=== PATIENT | female | born 1995 | race Caucasian/White ===

== ENCOUNTER → 2021-09-15 17:38 | Outpatient (CLI) | payer OTHER, SELFPAY ==
--- NOTE | 2021-09-15 17:49 | DI.MRI.S_ITS ---
PROCEDURE: MR FOOT RT WO CON INDICATIONS: PAIN IN RIGHT FOOT TECHNIQUE: Noncontrast sagittal T1 spin echo and T2 fast spin echo with fat saturation, long-axis T1 spin echo and T2 fast spin echo with fat saturation, short-axis T1 spin echo and T2 fast spin echo with fat saturation through the forefoot. COMPARISON: [facility], CR, XR FOOT 3+ VIEWS RIGHT, 08/29/2021, 12:32. FINDINGS: Image quality: Excellent. Bones and joints: No bone marrow contusions or fractures. No evidence of metatarsal stress reaction or stress fractures. There is mild cartilage thinning of the 1st metatarsophalangeal joint with mild osteophytosis and subchondral edema consistent with mild degeneration. There is a minimal joint effusion at the 1st metatarsophalangeal joint. The sesamoid bones appear in expected positions, without internal edema. No intraosseous lesions. Soft tissues: The visualized plantar foot muscles demonstrate normal signal and bulk. Visualized flexor and extensor tendons appear intact, without tenosynovitis. The distal insertions of the peroneus brevis and longus tendons appear intact. The principal Lisfranc ligament appears intact. No soft tissue ganglion cysts or bursal fluid collections. Sagittal images demonstrate no evidence for plantar plate tears. IMPRESSION: 1. No fractures or bone contusions. 2. 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 Dictated by: Tacho Abdullahi M.D. on 09/18/2021 at 9:43 Approved by: Tacho Abdullahi M.D. on 09/18/2021 at 10:01
== END ==
PROVIDERS: Referring Provider Podiatrist; Visit Provider Podiatrist
DX: M25.879 Other specified joint disorders, unspecified ankle and foot (principal); M79.671 Pain in right foot; R26.2 Difficulty in walking, not elsewhere classified; M25.474 Effusion, right foot
CPT/HCPCS: 73718

== ENCOUNTER 2021-12-10 11:57 | Emergency (ER) | payer OTHER, SELFPAY ==
[2021-12-10 12:14] VITALS: BP 99/59; PULSE 104; RESP 18; TEMP 37.9; O2SAT 97; BMI 19.3
--- NOTE | 2021-12-10 12:30 | DI.RAD.S_ITS ---
PROCEDURE: XR CHEST 1V INDICATIONS: suspected sepsis TECHNIQUE: One view of the chest was acquired. COMPARISON: None. FINDINGS: Surgical changes and devices: None. Lungs and pleura: Lungs are clear. No pleural effusions or pneumothorax. Mediastinum: Mediastinal contours appear normal. Heart size is normal. Bones and chest wall: No suspicious bony lesions. Overlying soft tissues appear unremarkable. IMPRESSION: No acute process. Dictated by: Lyndon Zamora M.D. on 12/10/2021 at 13:45 Approved by: Lyndon Zamora M.D. on 12/10/2021 at 13:45
--- NOTE | 2021-12-10 12:41 | ED_ITS ---
HPI - General Adult General Chief complaint: Abdominal Pain Stated complaint: v/d for the last 6 hours Time Seen by Provider: 12/10/21 12:31 Source: patient Mode of arrival: Ambulatory History of Present Illness HPI narrative: Patient is a 26-year-old female who arrives to the emergency department for 6 hours of vomiting and diarrhea. States she woke up this morning feeling very nauseous. Since that time she has had multiple episodes of vomiting multiple episodes of diarrhea. Some abdominal cramping around these episodes. She stat es she did have 1 glass of wine last evening otherwise no other potential reason for the nausea and vomiting. No recent travel. No recent antibiotics. No known sick contacts. No chest pain. No shortness of breath. No urinary symptoms. No vaginal bleeding. No skin rashes. No joint pain. Related Data Allergies Allergy/AdvReac Type Severity Reaction Status Date / Time No Known Drug Allergies Allergy Verified 12/10/21 12:17 Review of Systems Review of Systems ROS Unobtainable: All systems reviewed & are unremarkable except as noted in HPI and below Patient History Medical History Healthy adult Social History Smoking Status: Never smoker Smoking Status: Never smoker Substance Use Type: does not use Exam Initial Vital Signs Initial Vital Signs: Vital Signs Temperature 100.3 F H 12/10/21 12:14 Pulse Rate 104 H 12/10/21 12:14 Respiratory Rate 18 12/10/21 12:14 Blood Pressure 99/59 L 12/10/21 12:14 Pulse Oximetry 97 12/10/21 12:14 Const General: cooperative, comfortable and well developed HENMT Head: normal to inspection and normocephalic Mouth: moist mucous membranes Resp Effort & Inspection: normal respiratory effort Auscultation: clear to auscultation bilaterally Cardio Rate: tachycardic Rhythm: regular rhythm GI Inspection: normal to inspection Palpation: soft, No firm, No guarding and No tender Skin General: no rashes or lesions noted Neuro General: patient alert, patient awake and moves all extremities Cognition: normal cognition Speech: speech normal Extrem General: normal to inspection and capillary refill normal Psych Appearance: grossly normal and well kempt Course Orders Ordered: ED Orders 12/10/21 12:30 XR chest 1V Stat RT Consult Eval and Treat NOW 12/10/21 12:32 Urine Microscopic Stat 12/10/21 12:36 Complete Blood Count AUTO DIFF Stat Comprehensive Metabolic Panel Stat Lactate (Lactic Acid) Stat Lipase Stat Procalcitonin Stat 12/10/21 12:51 Blood Culture Stat 12/10/21 13:10 EKG-12 Lead Stat Discontinued Medications Sodium Chloride (Normal Saline 0.9%) 1,000 mls @ 1,000 mls/hr IV BOLUS ONE Stop: 12/10/21 13:29 Last Infusion: 12/10/21 13:57 Dose: 0 mls/hr Documented by: Admin: 12/10/21 12:51 Dose: 1,000 mls/hr Documented by: GERRI Sodium Chloride (Normal Saline 0.9%) 1,000 mls @ 1,000 mls/hr IV BOLUS ONE Stop: 12/10/21 13:35 Last Admin: 12/10/21 13:16 Dose: Not Given Documented by: MIREYA Ondansetron HCl (Ondansetron 4 Mg/2 Ml Inj) 4 mg IV NOW ONE Stop: 12/10/21 12:43 Last Admin: 12/10/21 12:51 Dose: 4 mg Documented by: GERRI Ondansetron HCl (Ondansetron 4 Mg Odt Prepack) 1 bottle MISC SEEINSTR ONE Stop: 12/10/21 15:43 Last Admin: 12/10/21 16:03 Dose: 1 bottle Documented by: MIREYA Vital Signs Vital signs: Vital Signs - 8 hr 12/10/21 12:14 12/10/21 14:01 12/10/21 15:22 Temperature 100.3 F H 99.1 F 100.5 F H Pulse Rate 104 H 97 H 100 H Respiratory Rate 18 18 18 Blood Pressure 99/59 L 95/51 L 98/55 L Pulse Oximetry 97 99 100 12/10/21 16:23 Temperature Pulse Rate 100 H Respiratory Rate 16 Blood Pressure 98/56 L Pulse Oximetry 99 Medical Decision Making Lab Data Lab results reviewed: Yes I reviewed the patient's lab results. Result diagrams: 12/10/21 12:36 12/10/21 12:36 Labs: Lab Results 12/10/21 12/10/21 12/10/21 Range/Units 12:32 12:36 12:36 WBC 10.7 (4.5-11.0) X10^3/uL RBC 4.33 (4.0-5.2) X10^6/uL Hgb 13.3 (12.0-16.0) g/dL Hct 39.0 (36-46) % MCV 89.9 (80-100) fL MCH 30.7 (26-34) PG MCHC 34.1 (30-36) % RDW 12.9 (11.6-14.8) % Plt Count 225 (150-400) X10^3/uL Neut % (Auto) 95.1 H (50-75) % Lymph % (Auto) 1.4 L (25-40) % [place] % (Auto) 3.1 (3-14) % Eos % (Auto) 0.3 L (2-4) % Baso % (Auto) 0.1 (0-2) % Neut # (Auto) 05019 H (5667-4943) /uL Lymph # (Auto) 100 L (8566-0701) /uL [place] # (Auto) 300 (0-900) /uL Eos # (Auto) 0 (0-450) /uL Baso # (Auto) 0 (0-100) /uL Sodium 139 (137-145) mmol/L Potassium 3.6 (3.4-5.1) mmol/L Chloride 103 (98-107) mmol/L Carbon Dioxide 24 (22-32) mmol/L BUN 19 H (7-17) mg/dL Creatinine 0.80 (0.52-1.04) mg/dL Estimated GFR > 60 (>60) mL/min BUN/Creatinine Ratio 23.8 H (6-22) Glucose 127 H (70-100) mg/dL Lactate (0.7-2.1) mmol/L Calcium 9.0 (8.4-10.2) mg/dL Total Bilirubin 0.9 (0.2-1.3) mg/dL AST 33 (14-36) IU/L ALT 22 (<35) IU/L Alkaline Phosphatase 61 (38-126) U/L Total Protein 7.3 (6.3-8.2) g/dL Albumin 4.3 (3.5-5.0) g/dL Globulin 3.0 (1.7-4.1) g/dL Albumin/Globulin Ratio 1.4 (1.0-2.8) Lipase 42 (23-300) U/L Procalcitonin 0.18 (<0.5) ng/mL Urine RBC None seen (0-5/HPF) Urine WBC 1-5/hpf (0-5/HPF) Ur Squamous Epith Cells 5-10 /hpf H (0-5/HPF) Amorphous Sediment 1+ Urine Bacteria None seen (None) Ur Culture Indicated? Cult not indicated 12/10/21 12/10/21 Range/Units 12:36 15:05 WBC (4.5-11.0) X10^3/uL RBC (4.0-5.2) X10^6/uL Hgb (12.0-16.0) g/dL Hct (36-46) % MCV (80-100) fL MCH (26-34) PG MCHC (30-36) % RDW (11.6-14.8) % Plt Count (150-400) X10^3/uL Neut % (Auto) (50-75) % Lymph % (Auto) (25-40) % [place] % (Auto) (3-14) % Eos % (Auto) (2-4) % Baso % (Auto) (0-2) % Neut # (Auto) (4406-8292) /uL Lymph # (Auto) (1745-5394) /uL [place] # (Auto) (0-900) /uL Eos # (Auto) (0-450) /uL Baso # (Auto) (0-100) /uL Sodium (137-145) mmol/L Potassium (3.4-5.1) mmol/L Chloride (98-107) mmol/L Carbon Dioxide (22-32) mmol/L BUN (7-17) mg/dL Creatinine (0.52-1.04) mg/dL Estimated GFR (>60) mL/min BUN/Creatinine Ratio (6-22) Glucose (70-100) mg/dL Lactate 2.6 H 0.8 (0.7-2.1) mmol/L Calcium (8.4-10.2) mg/dL Total Bilirubin (0.2-1.3) mg/dL AST (14-36) IU/L ALT (<35) IU/L Alkaline Phosphatase (38-126) U/L Total Protein (6.3-8.2) g/dL Albumin (3.5-5.0) g/dL Globulin (1.7-4.1) g/dL Albumin/Globulin Ratio (1.0-2.8) Lipase (23-300) U/L Procalcitonin (<0.5) ng/mL Urine RBC (0-5/HPF) Urine WBC (0-5/HPF) Ur Squamous Epith Cells (0-5/HPF) Amorphous Sediment Urine Bacteria (None) Ur Culture Indicated? Point of Care Testing Test Results Negative Urine Dip Bedside Urine Glucose Negative Bedside Urine Bilirubin + 1 Bedside Urine Ketone - Negative Urine Specific Willard 1.005 Bedside Urine Occult Blood - Negative Bedside Urine pH 8.5 Bedside Urine Protein + 30 Bedside Urine Urobilinogen - Negative Bedside Urine Nitrite - Negative Bedside Urine Leukocytes - Negative Esterase Point of care testing: Point of Care Testing Test Results Negative Urine Dip Bedside Urine Glucose Negative Bedside Urine Bilirubin + 1 Bedside Urine Ketone - Negative Urine Specific Willard 1.005 Bedside Urine Occult Blood - Negative Bedside Urine pH 8.5 Bedside Urine Protein + 30 Bedside Urine Urobilinogen - Negative Bedside Urine Nitrite - Negative Bedside Urine Leukocytes - Negative Esterase Imaging Data Chest x-ray: Radiologist's Impression: [place] [address] XRay Report Signed Patient: Leah Crocker MR#: [id number] : 1995 Acct:[id number] Age/Sex: 26 / F Date of Service: 12/10/21 Loc: ED Accession Number: [id number] ?? Procedure: XR chest 1V Ordering Provider: Jacinto Posadas D.O. PROCEDURE:? XR CHEST 1V ? INDICATIONS:? suspected sepsis ? TECHNIQUE:? One view of the chest was acquired.? ? COMPARISON:? None. ? FINDINGS:? ? Surgical changes and devices:? None.? ? Lungs and pleura:? Lungs are clear.? No pleural effusions or pneumothorax.? ? Mediastinum:? Mediastinal contours appear normal.? Heart size is normal.? ? Bones and chest wall:? No suspicious bony lesions.? Overlying soft tissues appear unremarkable.? ? IMPRESSION:? No acute process. ? ? Dictated by: Lyndon Zamora M.D. on 12/10/2021 at 13:45 ? ? Approved by: Lyndon Zamora M.D. on 12/10/2021 at 13:45? ECG Data Attestation: I personally reviewed and interpreted this ECG as follows: Interpretation: Sinus rhythm Ventricular rate 95 Normal axis Normal QRS Normal QTC No ST T wave changes MDM Narrative Medical decision making narrative: Patient was febrile upon arrival. Tachycardic but this improved with fluids. Does not have a white count. Does have an elevated lactate but this improved with fluid is well. I suspect that this was stress from all of the vomiting. She feels better after treatment here in the ER. Was able to tolerate oral intake without vomiting. She has a benign abdominal exam. No indication for radiologic studies. We will send home with anti nausea medication. No indication for antibiotics currently based on her history and physical. He was given strict return precautions and follow-up instructions. She expressed understanding and agreement. Discharge Plan Departure Patient Disposition: Home Clinical Impression: Nausea and vomiting Instructions: Nausea and Vomiting-Adult Activity Restrictions/Additional Instructions: Be sure to increase your fluid intake by drinking small amounts of fluid over longer periods of time. Use the nausea medication as needed. Contact your primary doctor for follow-up. Return to the emergency department for any new or worsening symptoms.
[2021-12-10 12:44] LABS: RBC Urine None Seen (0-5/HPF); WBC Urine 1-5/HPF (0-5/HPF)
[2021-12-10 12:45] LABS: Amorphous Sediment Urine 1+; Bacteria Urine None Seen; Culture Indicated Urine Cult Not Indicated; Squamous Epithelial Cell Urine 5-10 /HPF (0-5/HPF)
[2021-12-10 12:48] LABS: Add Manual Diff / Slide Review NO; Basophils Absolute Auto 0 /uL (0-100); Basophils Percent Auto 0.1 % (0-2); Eosinophils Absolute Auto 0 /uL (0-450); Eosinophils Percent Auto 0.3 % (2-4); Hemoglobin 13.3 g/dL (12.0-16.0); Lymphocytes Absolute Auto 100 /uL (1100-4500); Lymphocytes Percent Auto 1.4 % (25-40); Mean Corpuscular HGB Conc 34.1 % (30-36); Mean Corpuscular Hemoglobin 30.7 PG (26-34); Mean Corpuscular Volume 89.9 fL (80-100); Monocytes Absolute Auto 300 /uL (0-900); Monocytes Percent Auto 3.1 % (3-14); Neutrophils Absolute Auto 10200 /uL (1500-7000); Neutrophils Percent Auto 95.1 % (50-75); Platelet Count 225 X10^3/uL (150-400); Red Blood Cell Count 4.33 X10^6/uL (4.0-5.2); Red Cell Distribution Width 12.9 % (11.6-14.8); White Blood Cell Count 10.7 X10^3/uL (4.5-11.0)
[2021-12-10] MEDS: SODIUM CHLORIDE 0.9% 1,000 ML 1000 ML IV (12:51)
[2021-12-10] MEDS: ONDANSETRON 4 MG/2 ML INJ IV (12:51)
[2021-12-10 12:58] LABS: Lactate (Lactic Acid) 2.6 mmol/L (0.7-2.1)
[2021-12-10 12:59] LABS: Alanine Aminotransferase 22 IU/L (<35); Albumin 4.3 g/dL (3.5-5.0); Albumin Globulin Ratio 1.4 (1.0-2.8); Alkaline Phosphatase 61 U/L (38-126); Aspartate Aminotransferase 33 IU/L (14-36); BUN Creatinine Ratio 23.8 (6-22); Bilirubin Total 0.9 mg/dL (0.2-1.3); Blood Urea Nitrogen 19 mg/dL (7-17); Carbon Dioxide 24 mmol/L (22-32); Chloride 103 mmol/L (98-107); Estimated Glomerular Filt Rate > 60 mL/min (>60); Glucose 127 mg/dL (70-100); HEMOLYSIS < 15 (0-50); Lipase 42 U/L (23-300); Potassium 3.6 mmol/L (3.4-5.1); Sodium 139 mmol/L (137-145); Total Protein 7.3 g/dL (6.3-8.2)
[2021-12-10 13:16] LABS: Procalcitonin 0.18 ng/mL (<0.5)
[2021-12-10 14:01] VITALS: BP 95/51; PULSE 97; RESP 18; TEMP 37.3; O2SAT 99
[2021-12-10 14:41] LABS: Reflexed Lactate in 2 Hours Y
[2021-12-10 15:22] VITALS: BP 98/55; PULSE 100; RESP 18; TEMP 38.1; O2SAT 100
[2021-12-10 15:23] LABS: Lactate 2HR (Lactic Acid Rflx) 0.8 mmol/L (0.7-2.1)
[2021-12-10] MEDS: ONDANSETRON 4 MG ODT PREPACK 1 BOTTLE MISC (16:03)
[2021-12-10 16:23] VITALS: BP 98/56; PULSE 100; RESP 16; O2SAT 99
== END 2021-12-10 16:07 | disposition home or self-care (01) ==
PROVIDERS: Emergency Provider Emergency Medicine
DX: R11.2 Nausea with vomiting, unspecified (principal); R19.7 Diarrhea, unspecified; R00.0 Tachycardia, unspecified
CPT/HCPCS: 36415; 71045; 80053; 81003; 81015; 81025; 83605; 83690; 84145; 85025; 87040; 93005; 93010; 96361; 96374; 99284; J2405

== ENCOUNTER → 2022-06-27 07:48 | Outpatient (CLI) | payer OTHER, SELFPAY | PROVIDERS: Visit Provider Nurse Practitioner Family | DX: R39.15 Urgency of urination (principal) | CPT/HCPCS: 87086 ==

== ENCOUNTER → 2022-07-25 13:29 | Outpatient (CLI) | payer OTHER, SELFPAY | PROVIDERS: Referring Provider Internal Medicine; Visit Provider Internal Medicine | DX: Z23 Encounter for immunization (principal) | CPT/HCPCS: 90471; 90686 ==

== ENCOUNTER → 2023-03-27 17:15 | Outpatient (CLI) | payer OTHER, SELFPAY ==
--- NOTE | 2023-03-27 | DI.MRI.S_ITS ---
PROCEDURE: MRFOOT LT WO CON INDICATIONS: sprain of Tarsometatarsal ligament of left foot TECHNIQUE: Noncontrast sagittal T1 spin echo and T2 fast spin echo with fat saturation, long-axis T1 spin echo and T2 fast spin echo with fat saturation, short-axis T1 spin echo and T2 fast spin echo with fat saturation through the forefoot. COMPARISON: None. FINDINGS: Image quality: Excellent. Bones and joints: No bone marrow contusions or metatarsal stress fractures. Mild hallux valgus. Mild degenerative changes at the 1st metatarsophalangeal joint. The sesamoid bones appear in expected positions, without internal edema. No intraosseous lesions. Soft tissues: The visualized plantar foot muscles demonstrate normal signal and bulk. Visualized flexor and extensor tendons appear intact, without tenosynovitis. The distal insertions of the peroneus brevis and longus tendons appear intact. The principal Lisfranc ligament appears intact. No soft tissue ganglion cysts or bursal fluid collections. Sagittal images demonstrate no evidence for plantar plate tears. IMPRESSION: 1. Mild hallux valgus. 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 2. No acute osseous fracture or trabecular bone injury. No significant ligament or tendon injury is seen. Approved by: Tj López M.D. on 03/28/2023 at 13:28
== END ==
PROVIDERS: Referring Provider Podiatrist; Visit Provider Podiatrist
DX: S93.622D Sprain of tarsometatarsal ligament of left foot, subsequent encounter (principal); M20.12 Hallux valgus (acquired), left foot; M19.072 Primary osteoarthritis, left ankle and foot
CPT/HCPCS: 73718

== ENCOUNTER 2023-12-17 18:49 | Emergency (ER) | payer OTHER, SELFPAY ==
[2023-12-17 18:53] VITALS: BP 143/85; PULSE 68; RESP 16; TEMP 36.5; O2SAT 99; BMI 20.9
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
== END 2023-12-17 19:40 | disposition home or self-care (01) ==
PROVIDERS: Emergency Provider Emergency Medicine
DX: S01.81XA Laceration without foreign body of other part of head, initial encounter (principal); V19.9XXA Pedal cyclist (driver) (passenger) injured in unspecified traffic accident, initial encounter
CPT/HCPCS: 12011; 99281; 99283

== ENCOUNTER → 2023-12-18 11:25 | Outpatient (CLI) | payer OTHER, SELFPAY ==
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
== END ==
PROVIDERS: Referring Provider Physician Assistant; Visit Provider Physician Assistant
DX: S79.912A Unspecified injury of left hip, initial encounter (principal); X58.XXXA Exposure to other specified factors, initial encounter
CPT/HCPCS: 73502

== ENCOUNTER → 2024-10-15 17:08 | Outpatient (CLI) | payer OTHER, SELFPAY ==
[2024-10-15 17:51] LABS: HCG Quantitative /Beta subunit 476.05 mIU/mL
== END ==
PROVIDERS: PCP Nurse Practitioner Family; Referring Provider Nurse Practitioner Family; Visit Provider Nurse Practitioner Family
DX: O20.9 Hemorrhage in early pregnancy, unspecified (principal)
CPT/HCPCS: 36415; 84702

== ENCOUNTER → 2024-10-17 12:38 | Outpatient (CLI) | payer OTHER, SELFPAY ==
[2024-10-17 13:56] LABS: HCG Quantitative /Beta subunit 936.01 mIU/mL
== END ==
PROVIDERS: PCP Nurse Practitioner Family; Referring Provider Nurse Practitioner Family; Visit Provider Nurse Practitioner Family
DX: O20.9 Hemorrhage in early pregnancy, unspecified (principal)
CPT/HCPCS: 36415; 84702

== ENCOUNTER → 2024-10-28 06:48 | Outpatient (CLI) | payer OTHER, SELFPAY ==
--- NOTE | 2024-10-28 06:50 | DI.US.S_ITS ---
PROCEDURE: US OB <= 14 WEEKS FETUS INDICATIONS: DATING AND VIABILITY OUTSIDE/PRIOR DATING DATA: Last menstrual period (LMP): 09/16/2024 LMP-based estimated date of delivery (DEVYN): 06/23/2025. First dating scan (date and location): 10/28/2024. Estimated date of delivery (DEVYN) from first dating scan: 06/21/2025. TECHNIQUE: Real-time scanning was performed of the fetus and maternal pelvic organs, with image documentation. Endovaginal scanning was also performed to better visualize the fetus and maternal ovaries. COMPARISON: None. FINDINGS: Embryo: pole with crown-rump length measuring 0.5 cm, consistent with 6 weeks and 2 days. Heart rate: 107 beats per minute Maternal organs: Left ovarian corpus luteal cyst. Right ovary is not seen. IMPRESSION: Single live intrauterine consistent with 6 weeks and 2 days. We strive to produce accurate, complete, and clear reports of imaging services. To assist us in improving patient care, this report was composed using standard report templates and voice recognition software. Therefore, it may contain abnormal punctuation, insertions and/or omissions. Occasional wrong-word or sound-alike substitutions may occur. Though we review the report and make efforts to correct it, we do recommend that the report be read carefully in proper context to recognize any text inaccuracies. Dictated by: Rolando Martínez M.D. on 10/28/2024 at 14:08 Approved by: Rolando Martínez M.D. on 10/28/2024 at 14:09
== END ==
PROVIDERS: PCP Nurse Practitioner Family; Referring Provider Nurse Practitioner Obstetrics & Gynecology; Visit Provider Nurse Practitioner Obstetrics & Gynecology
DX: O36.80X0 Pregnancy with inconclusive fetal viability, not applicable or unspecified (principal); Z3A.01 Less than 8 weeks gestation of pregnancy
CPT/HCPCS: 76801; 76817

== ENCOUNTER → 2025-03-22 19:36 | Outpatient (ROUT) | payer OTHER, SELFPAY ==
[2025-03-22 19:54] LABS: Add Manual Diff / Slide Review NO; Hematocrit 32.1 % (36-46); Hemoglobin 10.8 g/dL (12.0-16.0); Lymphocytes Absolute Auto 1400 /uL (1100-4500); Mean Corpuscular HGB Conc 33.8 % (30-36); Mean Corpuscular Hemoglobin 29.7 PG (26-34); Mean Corpuscular Volume 87.9 fL (80-100); Platelet Count 241 X10^3/uL (150-400)
[2025-03-22 20:42] LABS: Thyroid Stimulating Hormone 1.87 uIU/mL (0.47-4.68)
[2025-03-22 22:00] LABS: Free T4, Direct Thyroxine 0.98 ng/dL (0.78-2.19)
== END ==
PROVIDERS: PCP Nurse Practitioner Family; Visit Provider Nurse Practitioner Obstetrics & Gynecology
DX: E07.9 Disorder of thyroid, unspecified (principal); Z34.00 Encounter for supervision of normal first pregnancy, unspecified trimester
CPT/HCPCS: 84439; 84443; 85025